=== PATIENT | female | born 1980 | race Caucasian/White ===

== ENCOUNTER → 2017-03-14 | Outpatient (REF) | payer OTHER ==
[~2017-03-14] MED LIST: IBUP600T26 PO; PERC5TAB6 PO; STUACAP PO
== END ==
LOC: M LAB REF 13:22
PROVIDERS: ATTEND Specialist
DX: Z12.4 Encounter for screening for malignant neoplasm of cervix (principal)

== ENCOUNTER → 2017-10-03 | Outpatient (CLI) | payer OTHER ==
[~2017-10-03] MED LIST changes: +IBUP-1022 PO; -IBUP600T26 PO; +PERC5TAB12 PO; -PERC5TAB6 PO
[2017-10-03 14:10] LABS: ESTRADIOL 237.5 PG/ML; PROGESTERONE 20.1 NG/ML
== END ==
LOC: M SMT 11:13
PROVIDERS: ATTEND Obstetrics & Gynecology Reproductive Endocrinology
DX: N97.9 Female infertility, unspecified (principal)

== ENCOUNTER → 2017-10-10 | Outpatient (CLI) | payer OTHER ==
[2017-10-10 12:01] LABS: PROGESTERONE 18.6 NG/ML
== END ==
LOC: M SMT 09:32
PROVIDERS: ATTEND Obstetrics & Gynecology Reproductive Endocrinology
DX: N97.9 Female infertility, unspecified (principal)

== ENCOUNTER → 2017-10-12 | Outpatient (CLI) | payer OTHER ==
[2017-10-12 13:46] LABS: ESTRADIOL 247.2 PG/ML; PROGESTERONE 22.7 NG/ML
== END ==
LOC: M SMT 10:22
PROVIDERS: ATTEND Obstetrics & Gynecology Reproductive Endocrinology
DX: Z32.01 Encounter for pregnancy test, result positive (principal)

== ENCOUNTER → 2017-10-16 | Outpatient (CLI) | payer OTHER ==
[2017-10-16 11:44] LABS: ESTRADIOL 113.2 PG/ML; PROGESTERONE 6.6 NG/ML
== END ==
LOC: M SMT 09:15
PROVIDERS: ATTEND Obstetrics & Gynecology Reproductive Endocrinology
DX: Z32.00 Encounter for pregnancy test, result unknown (principal)

== ENCOUNTER → 2018-01-22 | Outpatient (REF) | payer OTHER ==
[2018-01-22 20:11] LABS: FOLATE 21.8 NG/ML (>5.4)
== END ==
LOC: M LAB REF 17:25
DX: D64.9 Anemia, unspecified (principal)
CPT/HCPCS: 82746

== ENCOUNTER 2018-06-05 20:30 | Emergency (ER) | payer OTHER ==
[2018-06-05 22:40] LABS: BASO % 0.3 % (0.0-1.0); EOS # 0.1 10^3/uL (0.0-0.50); HEMATOCRIT 42.8 % (36.0-47.0); HEMOGLOBIN 14.3 g/dl (12.0-15.5); IMMATURE GRANULOCYTE % 0.2 % (0-3.0); LYMPH # 3.2 10^3/uL (1.5-4.5); MEAN CORPUSCULAR HEMOGLOBIN 29.7 pg (27.0-33.0); MEAN CORPUSCULAR HGB CONC 33.4 g/dl (32.0-36.5); MONO # 0.8 10^3/uL (0.0-0.8); MONO % 6.4 % (0.0-5.0); NEUTROPHILS # 7.7 10^3/uL (1.8-7.7); NEUTROPHILS % 65.1 % (36.0-66.0); PLATELET COUNT, AUTOMATED 190 10^3/uL (150-450); RED BLOOD COUNT 4.81 10^6/uL (4.00-5.40); RED CELL DISTRIBUTION WIDTH 13.6 % (11.5-14.5); WHITE BLOOD COUNT 11.8 10^3/uL (4.0-10.0)
[2018-06-05 23:04] LABS: ANION GAP 9 MEQ/L (8-16); BLOOD UREA NITROGEN 12 MG/DL (7-18); CALCIUM LEVEL 8.7 MG/DL (8.5-10.1); CARBON DIOXIDE LEVEL 24 MEQ/L (21-32); CHLORIDE LEVEL 109 MEQ/L (98-107); CK-MB VALUE MASS < 1.0 NG/ML (<3.6); CPK CREATINE PHOSPHOKINASE 37 U/L (26-192); CREATININE FOR GFR 0.69 MG/DL (0.55-1.30); GLOMERULAR FILTRATION RATE > 60.0 (>60); GLUCOSE, FASTING 88 MG/DL (70-100); MAGNESIUM LEVEL 2.1 MG/DL (1.8-2.4); POTASSIUM SERUM 3.9 MEQ/L (3.5-5.1); SODIUM LEVEL 142 MEQ/L (136-145); TROPONIN I < 0.02 NG/ML (< 0.10)
== END 2018-06-06 01:26 | disposition home or self-care (01) ==
LOC: M ED 06-06 01:26
DX: O99.89 Other specified diseases and conditions complicating pregnancy, childbirth and the puerperium (principal); R07.89 Other chest pain; R00.2 Palpitations; Z3A.08 8 weeks gestation of pregnancy; Z79.899 Other long term (current) drug therapy
CPT/HCPCS: 93005

== ENCOUNTER → 2018-07-31 | Outpatient (CLI) | payer OTHER ==
[2018-07-31 13:51] LABS: BASO % 0.2 % (0.0-1.0); EOS # 0.1 10^3/uL (0.0-0.50); EOS % 1.7 % (0.0-3.0); HEMATOCRIT 39.4 % (36.0-47.0); HEMOGLOBIN 13.3 g/dl (12.0-15.5); IMMATURE GRANULOCYTE % 0.2 % (0-3.0); LYMPH # 1.5 10^3/uL (1.5-4.5); LYMPH % 18.9 % (24.0-44.0); MEAN CORPUSCULAR HEMOGLOBIN 29.7 pg (27.0-33.0); MEAN CORPUSCULAR HGB CONC 33.8 g/dl (32.0-36.5); MEAN CORPUSCULAR VOLUME 87.9 fl (80.0-96.0); MONO # 0.4 10^3/uL (0.0-0.8); MONO % 4.9 % (0.0-5.0); NEUTROPHILS % 74.1 % (36.0-66.0); PLATELET COUNT, AUTOMATED 151 10^3/uL (150-450); RED BLOOD COUNT 4.48 10^6/uL (4.00-5.40); RED CELL DISTRIBUTION WIDTH 13.1 % (11.5-14.5); WHITE BLOOD COUNT 8.1 10^3/uL (4.0-10.0)
[2018-07-31 16:09] LABS: CHLAMYDIA DNA AMPLIFICATION NEGATIVE (NEGATIVE); GC DNA AMPLIFICATION NEGATIVE (NEGATIVE)
[2018-08-01 13:16] LABS: HBsAg Prenatal NEGATIVE (NEGATIVE); HIV 1&2 SCREEN CENTAUR NEGATIVE (NEGATIVE); RUBELLA IgG QUALITATIVE IMMUNE (IMMUNE)
[2018-08-01 13:16] LABS: HEPATITIS C VIRUS ABY INDEX 0.1 INDEX (<0.8)
== END ==
LOC: M SMT 09:17
DX: Z3A.12 12 weeks gestation of pregnancy (principal); Z34.82 Encounter for supervision of other normal pregnancy, second trimester

== ENCOUNTER → 2018-07-31 | Outpatient (CLI) | payer OTHER ==
[2018-07-31 14:32] LABS: NT-PRO BNP 12 PG/ML (<125)
== END ==
LOC: M SMT 09:15
DX: R06.02 Shortness of breath (principal)

== ENCOUNTER → 2018-08-06 | Outpatient (REF) | payer OTHER | LOC: M LAB REF 13:21 | DX: O09.812 Supervision of pregnancy resulting from assisted reproductive technology, second trimester (principal) ==

== ENCOUNTER → 2018-08-14 | Outpatient (CLI) | payer OTHER | LOC: M RAD 08:39 | DX: O09.812 Supervision of pregnancy resulting from assisted reproductive technology, second trimester (principal); Z3A.18 18 weeks gestation of pregnancy | CPT/HCPCS: 76811 ==

== ENCOUNTER → 2018-10-08 | Outpatient (CLI) | payer OTHER ==
[2018-10-08 18:35] LABS: BASO % 0.2 % (0.0-1.0); EOS # 0.1 10^3/uL (0.0-0.50); EOS % 1.3 % (0.0-3.0); HEMATOCRIT 37.8 % (36.0-47.0); HEMOGLOBIN 12.4 g/dl (12.0-15.5); IMMATURE GRANULOCYTE % 0.2 % (0-3.0); LYMPH # 1.5 10^3/uL (1.5-4.5); LYMPH % 17.2 % (24.0-44.0); MEAN CORPUSCULAR HEMOGLOBIN 28.7 pg (27.0-33.0); MEAN CORPUSCULAR HGB CONC 32.8 g/dl (32.0-36.5); MEAN CORPUSCULAR VOLUME 87.5 fl (80.0-96.0); MONO # 0.5 10^3/uL (0.0-0.8); MONO % 5.3 % (0.0-5.0); NEUTROPHILS # 6.5 10^3/uL (1.8-7.7); NEUTROPHILS % 75.8 % (36.0-66.0); PLATELET COUNT, AUTOMATED 146 10^3/uL (150-450); RED BLOOD COUNT 4.32 10^6/uL (4.00-5.40); RED CELL DISTRIBUTION WIDTH 13.5 % (11.5-14.5); WHITE BLOOD COUNT 8.6 10^3/uL (4.0-10.0)
[2018-10-08 18:52] LABS: GLUCOSE CHALLENGE TEST 1 HOUR 176 MG/DL (LESS THAN 140)
== END ==
LOC: M SMT 14:38
DX: O09.522 Supervision of elderly multigravida, second trimester (principal)
CPT/HCPCS: 82950

== ENCOUNTER → 2018-12-19 | Outpatient (REF) | payer OTHER ==
[~2018-12-19] MED LIST changes: +ESTR2TAB2 PO; +PRED5TA PO; +PRENTAB55 PO; +PROG200C PO; +PROG50IN5 IM
== END ==
LOC: M LAB REF 13:20
PROVIDERS: ATTEND Specialist
DX: O09.523 Supervision of elderly multigravida, third trimester (principal); Z3A.00 Weeks of gestation of pregnancy not specified

== ENCOUNTER 2019-01-07 05:28 | Inpatient (IN) | payer OTHER ==
[~2019-01-07] VITALS: Ht 167.6 cm; Wt 95.9 kg
[2019-01-07] VITALS (9 sets, daily range): BP systolic 99–135; BP diastolic 55–90
[~2019-01-07 05:28] MED LIST changes: +METF500T13 PO
[2019-01-07] MEDS ORDERED: BICITRA 30ML SOLN UDC PO ONE (05:45)
[2019-01-07] MEDS ORDERED: LR 800 ML IV ONE (05:45)
[2019-01-07 06:30] LABS: HEMATOCRIT 41.5 % (36.0-47.0); HEMOGLOBIN 13.3 g/dl (12.0-15.5); MEAN CORPUSCULAR HEMOGLOBIN 27.3 pg (27.0-33.0); MEAN CORPUSCULAR VOLUME 85.2 fl (80.0-96.0); PLATELET COUNT, AUTOMATED 152 10^3/uL (150-450); RED BLOOD COUNT 4.87 10^6/uL (4.00-5.40); WHITE BLOOD COUNT 9.7 10^3/uL (4.0-10.0)
[2019-01-07] MEDS ORDERED: LR 1,000 ML IV SCH ×2 (06:45→09:12)
[2019-01-07] MEDS ORDERED: MORPHINE PRES-FREE INJ 10 MG/10 ML VIAL (J2274) As Ordered ONE (07:13)
[2019-01-07] MEDS ORDERED: BUPIVACAINE/DEXTROSE 0.75% 2 ML AMP As Ordered ONE (07:14)
[2019-01-07] MEDS ORDERED: OXYTOCIN INJ 10 UNITS/ML VIAL (J2590) As Ordered ONE (07:54)
[2019-01-07] MEDS ORDERED: diphenhydrAMINE INJ 50MG/ML VIAL (J1200) IV PRN (08:02)
[2019-01-07] MEDS ORDERED: METOCLOPRAMIDE INJ 10MG/2ML VIAL (J2765) IV PRN (08:02)
[2019-01-07] MEDS ORDERED: ONDANSETRON 4MG/2ML VIAL (J2405) IV PRN ×3 (08:02→09:30)
[2019-01-07] MEDS ORDERED: NALBUPHINE HCL 10 MG/ML AMP (J2300) IV PRN ×2 (08:02→09:30)
[2019-01-07] MEDS ORDERED: NALOXONE INJ 0.4 MG/1 ML VIAL (J2310) IV PRN ×2 (08:02)
[2019-01-07] MEDS ORDERED: dexameTHASONE 4 MG/ML 1ML VIAL (J1100) As Ordered ONE (08:33)
[2019-01-07] MEDS ORDERED: ONDANSETRON 4MG/2ML VIAL (J2405) As Ordered ONE (08:33)
[2019-01-07] MEDS ORDERED: OXYTOCIN DRIP 30 UNITS in APPROPRIATE DILUENT 1 EA IV SCH (09:12)
[2019-01-07] MEDS ORDERED: OXYC1TAB23 PO (09:14)
[2019-01-07] MEDS ORDERED: IBUP1TAB7 PO (09:15)
[2019-01-07] MEDS ORDERED: RHOGAM 300 MCG (1500 IU) INJ (J2790) IM SCH (09:15)
[2019-01-07] MEDS ORDERED: MEASLES,MUMPS,RUBELLA VACCINE INJ (MMR-II) (90707) SC SCH (09:15)
[2019-01-07] MEDS ORDERED: PERCOCET 5MG/325MG TAB PO PRN ×2 (09:15)
[2019-01-07] MEDS ORDERED: NALBUPHINE HCL 10 MG/ML AMP (J2300) As Ordered ONE (09:27)
[2019-01-07] MEDS ORDERED: KETOROLAC 30 MG/ML VIAL (J1885) IV PRN (09:30)
[2019-01-07] MEDS ORDERED: fentaNYL 100 MCG/2 ML INJECTION (J3010) IV PRN (09:30)
[2019-01-07] MEDS ORDERED: OXYTOCIN 30 UNITS IN 0.9% NaCl 500ML IV BAG (J2590) As Ordered ONE (10:18)
[2019-01-07] MEDS: KETOROLAC 30 MG/ML VIAL (J1885) IV SCH ×3 (11:01→23:28)
[2019-01-08 02:00] VITALS: BP 109/59
[2019-01-08] MEDS: KETOROLAC 30 MG/ML VIAL (J1885) IV SCH (05:42)
[2019-01-08 05:43] VITALS: BP 111/59
[2019-01-08 07:23] LABS: HEMATOCRIT 35.7 % (36.0-47.0); HEMOGLOBIN 11.5 g/dl (12.0-15.5); MEAN CORPUSCULAR HEMOGLOBIN 27.4 pg (27.0-33.0); MEAN CORPUSCULAR HGB CONC 32.2 g/dl (32.0-36.5); PLATELET COUNT, AUTOMATED 127 10^3/uL (150-450); WHITE BLOOD COUNT 9.5 10^3/uL (4.0-10.0)
[2019-01-08] MEDS: PRENATAL VITAMINS CHEWABLE TABLET PO SCH (08:57)
[2019-01-08] MEDS ORDERED: ADACEL/BOOSTRIX VACCINE (DIPHTH/PERTUSS/ACELL/TETANUS)0.5ML SYR (90715) IM ONE (09:00)
--- NOTE | 2019-01-08 09:26 | RO ---
DATE OF OPERATION: 01/07/2019 PREOPERATIVE DIAGNOSIS: 39 weeks, prior section times one. POSTOPERATIVE DIAGNOSIS: 39 weeks, prior section times one. PROCEDURE: Repeat low transverse section. SURGEON: Heath Ceja MD GEOTHERMAL ELECTRICAL ENGINEER: Swati Phillips CNM ANESTHESIA: Spinal. ESTIMATED BLOOD LOSS: 600 mL. URINE OUTPUT: 100 mL. INTRAVENOUS (IV) FLUIDS: 1200 mL lactated Ringer (LR). FINDINGS: 3360 gram (7 pound 7 ounce) male , score 7 and 9, vertex position. Uterine septum with baby positioned in the left side surgically absent fallopian tube with moderate amount of adhesions with bladder to the anterior uterus. OPERATIVE SUMMARY: Patient taken to the operating room where spinal anesthesia was induced. She was prepped and draped in sterile fashion in the supine position. Orosco catheter was placed. A Pfannenstiel skin incision was made with the scalpel and carried through to the fascia. The fascia was nicked and extended. The fascia was dissected off the rectus muscles. Peritoneal cavity was entered. A bladder flap was created. A curvilinear incision was made in the lower uterine segment until bulging membranes were noted. This was extended manually. Membranes were ruptured of clear fluid. The infant was delivered from the vertex position with the use of the vacuum extractor. Nuchal cord times three was noted and reduced manually. The shoulders delivered with ease. The cord was doubly clamped and cut. The was handed off to the awaiting nurses. The placenta was expressed. The uterus was exteriorized and cleared of clots and debris. The uterine incision was closed with #0 Vicryl in a running locked fashion. A second imbricating layer of #0 Vicryl was placed. The uterus was placed back in the abdominal cavity. The peritoneum was closed with #2-0 Vicryl in a running fashion. The fascia was closed with #0 Vicryl in a running fashion. The deep layer was irrigated and closed with #2-0 chromic. The skin was closed with #4-0 Monocryl subcuticular sutures. Sponge, instrument and needle counts were correct. Swati Phillips CNM assisted in all aspects of procedure from beginning to end. She helped create all layers of the abdomen as well as hysterotomy. She assisted with delivery of the fetus and subsequent closure of all layers.
[2019-01-08 10:00] VITALS: BP 112/61
[2019-01-08] MEDS: IBUPROFEN 800 MG TAB PO SCH ×2 (13:05→20:33)
[2019-01-08 14:00] VITALS: BP 111/62
[2019-01-08 18:00] VITALS: BP 118/63
[2019-01-08 22:06] VITALS: BP 126/61
[2019-01-09 02:30] VITALS: BP 104/67
[2019-01-09] MEDS: IBUPROFEN 800 MG TAB PO SCH (05:04)
[2019-01-09 05:49] VITALS: BP 107/63
[2019-01-09] MEDS ORDERED: OXYC1TAB23 PO (07:40)
[2019-01-09] MEDS: PRENATAL VITAMINS CHEWABLE TABLET PO SCH (07:46)
--- NOTE | 2019-01-09 08:33 | DSES ---
DATE OF ADMISSION: 01/07/2019 DATE OF DISCHARGE: 01/09/2019 DISCHARGE DIAGNOSIS: History of prior section for elective repeat. DISCHARGE CONDITION: Stable. PROCEDURES PERFORMED WHILE IN HOSPITAL: 1. Spinal anesthesia. 2. section. HISTORY AND HOSPITAL COURSE: Ms. Dos Santos presented at 39 weeks for a scheduled section. She had a history of one prior section. She underwent an uncomplicated section productive of live born male infant. score 7 and 9. Weight was 7 pounds 7 ounces. Estimated blood loss was 600 ounces. She did well postoperatively. By postoperative day #2 had met all discharge criteria. She was discharged home in stable condition. PHYSICAL EXAMINATION: On day of discharge, her vital signs are stable. She is afebrile. General appearance is well appearing, no acute distress. Her abdomen is soft, appropriately tender. Fundus was below umbilicus. Her incision was dressed. Extremities negative for calf tenderness. DISCHARGE MEDICATIONS: - ibuprofen - Percocet DISCHARGE INSTRUCTIONS: 1. She was instructed to followup in 2 weeks for incision check appointment. 2. Remain on pelvic rest. 3. Report severe pain, heavy vaginal bleeding, incisional issues or fever.
== END 2019-01-09 11:00 | disposition home or self-care (01) | DRG 540 ==
LOC: M LDI 05:28 → M OBS 14:21
PROVIDERS: ADMIT Specialist; ATTEND Specialist
PROC: 10D00Z1 Extraction of Products of Conception, Low, Open Approach (ICD-10-PCS; principal; 2019-01-07 07:30)
DX: O34.211 Maternal care for low transverse scar from previous cesarean delivery (principal); Z3A.39 39 weeks gestation of pregnancy; Z37.0 Single live birth

== ENCOUNTER → 2019-10-09 | Outpatient (REF) | payer OTHER ==
[~2019-10-09] MED LIST changes: +IBUP1TAB7 PO; +OXYC1TAB23 PO; +PROG1CAP9 PO; -PROG200C PO
== END ==
LOC: M SFHCWAGY 13:26
PROVIDERS: ATTEND Specialist
DX: Z01.419 Encounter for gynecological examination (general) (routine) without abnormal findings (principal)

== ENCOUNTER 2020-01-30 05:58 | Day surgery (SDC) | payer OTHER ==
[~2020-01-30] VITALS: Ht 170.2 cm; Wt 93.0 kg
[2020-01-30] MEDS ORDERED: LR 1,000 ML IV ONE (06:00)
[2020-01-30 06:37] LABS: HEMATOCRIT 42.2 % (36.0-47.0); HEMOGLOBIN 13.4 g/dl (12.0-15.5); MEAN CORPUSCULAR HEMOGLOBIN 27.4 pg (27.0-33.0); MEAN CORPUSCULAR HGB CONC 31.8 g/dl (32.0-36.5); MEAN CORPUSCULAR VOLUME 86.3 fl (80.0-96.0); PLATELET COUNT, AUTOMATED 198 10^3/uL (150-450); RED BLOOD COUNT 4.89 10^6/uL (4.00-5.40); WHITE BLOOD COUNT 7.6 10^3/uL (4.0-10.0)
[2020-01-30] MEDS ORDERED: PROBCAP14 PO (06:48)
[2020-01-30] MEDS ORDERED: propofoL 200 MG/20 ML VIAL As Ordered ONE (07:19)
[2020-01-30] MEDS ORDERED: fentaNYL 100 MCG/2 ML INJECTION (J3010) As Ordered ONE (07:19)
[2020-01-30] MEDS ORDERED: MIDAZOLAM INJ 2 MG/2 ML VIAL (J2250) As Ordered ONE (07:19)
[2020-01-30] MEDS ORDERED: ONDANSETRON 4MG/2ML VIAL (J2405) As Ordered ONE (07:20)
[2020-01-30] MEDS ORDERED: dexameTHASONE 4 MG/ML 1ML VIAL (J1100 PER 1MG) As Ordered ONE (07:20)
[2020-01-30] MEDS ORDERED: LIDOCAINE 2% INJ 100 MG/5 ML SDV (FOR ANES.) As Ordered ONE (07:20)
[2020-01-30] MEDS ORDERED: BUPIVACAINE HCL 0.25% 30ML VIAL As Ordered ONE (07:48)
[2020-01-30] MEDS ORDERED: KETOROLAC 60 MG/2 ML VIAL (J1885) As Ordered ONE (07:51)
[2020-01-30] MEDS ORDERED: METOCLOPRAMIDE INJ 10MG/2ML VIAL (J2765) As Ordered ONE (07:51)
[2020-01-30] MEDS ORDERED: ACETAMINOPHEN 1000MG 100ML IV BTL (OFIRMEV) (J0131 PER 10MG) As Ordered ONE (07:52)
[2020-01-30] MEDS ORDERED: OXYC1TAB23 PO (09:18)
[2020-01-30] MEDS ORDERED: IBUP-1022 PO (09:20)
[2020-01-30] MEDS ORDERED: fentaNYL 100 MCG/2 ML INJECTION (J3010) IV PRN (09:30)
[2020-01-30] MEDS ORDERED: LR 1,000 ML IV SCH (09:30)
[2020-01-30] MEDS ORDERED: ONDANSETRON 4MG/2ML VIAL (J2405) IV PRN (09:30)
[2020-01-30] MEDS ORDERED: PERCOCET 5MG/325MG TAB PO PRN (09:30)
--- NOTE | 2020-01-30 09:46 | RO ---
DATE OF PROCEDURE: 01/30/2020 PREPROCEDURE DIAGNOSIS: Large right vulvar lipoma. POSTPROCEDURE DIAGNOSIS: Large right vulvar lipoma. PROCEDURE: Excision of right vulvar lipoma. SURGEON: Dr. Heath Ceja PATIENT CARE REPRESENTATIVE: ANESTHESIA: LMA. ESTIMATED BLOOD LOSS: 200 mL. URINE OUTPUT: 100 mL. FINDINGS: 11-12 cm multilobular lipoma of the right labia majora. DESCRIPTION OF PROCEDURE: The patient was taken to the operating room where LMA anesthesia was induced. She was prepped and draped in sterile fashion in the dorsal lithotomy position. The bladder was emptied with the catheter. The marking pen was used to john paul the area of the incision. The area was injected with 0.25% Marcaine solution. A vertical midline incision was created over the vulvar mass. Allis clamps were used to grasp the edges of the skin. The mass was dissected sharply off the vulva. Blunt dissection was also utilized. Bleeding vessels were identified and coagulated. Occasionally, bleeding vessels were sutured. The mass was mobilized as the borders were identified. The specimen was removed intact in one piece. The area was probed for evidence of hernia or other problems and none were found. The base of the excision site was closed with running sutures of #3-[address] the space was closed. Excess skin was excised using Calabrese scissors. The skin was closed with #3-0 Vicryl in a running fashion. Separate retention sutures were placed in an effort to prevent wound separation. Sponge, instrument and needle counts were correct. The patient was extubated and went to recovery room in stable condition.
[2020-01-30 11:41] VITALS: BP 110/74
== END 2020-01-30 11:53 | disposition home or self-care (01) ==
LOC: M SDC 05:58
PROVIDERS: ATTEND Specialist
DX: D17.72 Benign lipomatous neoplasm of other genitourinary organ (principal)
CPT/HCPCS: 11426; 36415; 85027; 88304; J0131; J1100; J1885; J2250; J2405; J2765; J3010

== ENCOUNTER → 2020-06-18 | Outpatient (CLI) | payer OTHER ==
[~2020-06-18] MED LIST changes: +PROBCAP14 PO
--- NOTE | 2020-06-18 15:37 | REPVR ---
PROCEDURE INFORMATION: Exam: CT Maxillofacial Without Contrast, Sinus Exam date and time: 06/18/2020 3:20 PM Age: 39 years old Clinical indication: Sinusitis; Chronic; Additional info: J32.0 chronic maxillary sinusitis TECHNIQUE: Imaging protocol: CT Maxillofacial without contrast. Focus on the sinuses. Radiation optimization: All CT scans at this facility use at least one of these dose optimization techniques: automated exposure control; mA and/or kV adjustment per patient size (includes targeted exams where dose is matched to clinical indication); or iterative reconstruction. COMPARISON: No relevant prior studies available. FINDINGS: Frontal sinuses: Normal. No air-fluid levels. Ethmoid air cells: Normal. No air-fluid levels. Sphenoid sinuses: Normal. No air-fluid levels. Maxillary sinuses: Normal. No air-fluid levels. Ostiomeatal units are patent. Orbits: Examination reveals bilateral globes to be normal in size and morphology. The optic nerves are normal in thickness and symmetric bilaterally. The extraocular muscles are normal in thickness and signal intensity. The retroconal fat has a normal appearance. The lacrimal glands appear normal bilaterally. Mastoid air cells: The visualized mastoid air cells are clear. Nasal cavity/Septum: Unremarkable. Brain: The visualized brain parenchyma is unremarkable. Soft tissues: Unremarkable. Bones/joints: The bony orbital lees are intact. No fractures are identified. The visualized osseous structures are unremarkable. No acute fracture or dislocation is seen. IMPRESSION: 1. The visualized paranasal sinuses are clear. There are no air fluid levels to suggest acute sinusitis. 2. The visualized mastoid air cells are clear. Electronically signed by: Mynor Javier On 06/18/2020 15:38:03 PM
== END ==
LOC: M RAD 14:58
PROVIDERS: ATTEND Otolaryngology
DX: J32.0 Chronic maxillary sinusitis (principal)

== ENCOUNTER → 2020-06-26 | Outpatient (REF) | payer OTHER ==
[2020-06-26 17:39] LABS: APPEARANCE, URINE CLEAR (CLEAR); BACTERIA, URINE AUTO NEGATIVE (NEGATIVE); BILIRUBIN, URINE AUTO NEGATIVE (NEGATIVE); BLOOD, URINE BLOOD NEGATIVE (NEGATIVE); COLOR, URINE STRAW (YELLOW); GLUCOSE, URINE (UA) AUTO NEGATIVE (NEGATIVE); KETONE, URINE AUTO NEGATIVE (NEGATIVE); LEUKOCYTE ESTERASE, URINE AUTO NEGATIVE (NEGATIVE); NITRITE, URINE AUTO NEGATIVE (NEGATIVE); PROTEIN, URINE AUTO NEGATIVE (NEGATIVE); RBC, URINE AUTO 0 /HPF (0-3); SPECIFIC GRAVITY URINE AUTO 1.013 (1.002-1.035); SQUAMOUS EPITHELIAL CELL UR AU 0 /HPF (0-6); UROBILINOGEN, URINE AUTO 0.2 mg/dL (0.0-2.0); WBC, URINE AUTO 0 /HPF (0-3)
[2020-06-26 18:19] LABS: URINE PREG TEST NEGATIVE (NEGATIVE)
== END ==
LOC: M LAB REF 16:59
PROVIDERS: ATTEND Physician Assistant
DX: N39.0 Urinary tract infection, site not specified (principal)

== ENCOUNTER → 2020-07-04 | Outpatient (REF) | payer OTHER ==
[2020-07-04 13:01] LABS: APPEARANCE, URINE HAZY (CLEAR); BACTERIA, URINE AUTO NEGATIVE (NEGATIVE); BILIRUBIN, URINE AUTO NEGATIVE (NEGATIVE); BLOOD, URINE BLOOD 1+ (NEGATIVE); COLOR, URINE YELLOW (YELLOW); GLUCOSE, URINE (UA) AUTO NEGATIVE (NEGATIVE); KETONE, URINE AUTO NEGATIVE (NEGATIVE); LEUKOCYTE ESTERASE, URINE AUTO NEGATIVE (NEGATIVE); MUCUS, URINE SMALL (NEGATIVE); NITRITE, URINE AUTO NEGATIVE (NEGATIVE); PROTEIN, URINE AUTO NEGATIVE (NEGATIVE); RBC, URINE AUTO 1 /HPF (0-3); SQUAMOUS EPITHELIAL CELL UR AU 7 /HPF (0-6); UROBILINOGEN, URINE AUTO 0.2 mg/dL (0.0-2.0); WBC, URINE AUTO 1 /HPF (0-3)
== END ==
LOC: M LAB 12:27
PROVIDERS: ATTEND Physician Assistant Medical
DX: N39.0 Urinary tract infection, site not specified (principal)

== ENCOUNTER → 2020-11-24 | Outpatient (CLI) | payer OTHER ==
[2020-11-24 15:56] LABS: ALBUMIN 4.2 GM/DL (3.2-5.2); ALT/SGPT 32 U/L (12-78); BILIRUBIN,TOTAL 0.3 MG/DL (0.2-1.0); BLOOD UREA NITROGEN 12 MG/DL (7-18); CALCIUM LEVEL 9.1 MG/DL (8.5-10.1); CARBON DIOXIDE LEVEL 30 MEQ/L (21-32); CHLORIDE LEVEL 106 MEQ/L (98-107); CREATININE FOR GFR 0.76 MG/DL (0.55-1.30); GLOMERULAR FILTRATION RATE > 60.0 (>60); GLUCOSE, FASTING 103 MG/DL (70-100); HCG, SERUM QUANTITATIVE < 1.0 MIU/ML; SODIUM LEVEL 141 MEQ/L (136-145); TOTAL PROTEIN 7.4 GM/DL (6.4-8.2)
== END ==
LOC: M PLALAB 13:30
PROVIDERS: ATTEND Obstetrics & Gynecology Reproductive Endocrinology
DX: E28.9 Ovarian dysfunction, unspecified (principal)

== ENCOUNTER → 2021-01-27 | Outpatient (CLI) | payer OTHER ==
[2021-01-27 15:53] LABS: ESTRADIOL 117.6 PG/ML; PROGESTERONE 32.28 NG/ML
== END ==
LOC: M PLALAB 10:29
PROVIDERS: ATTEND Obstetrics & Gynecology Reproductive Endocrinology
DX: E28.9 Ovarian dysfunction, unspecified (principal)

== ENCOUNTER → 2021-02-02 | Outpatient (CLI) | payer OTHER ==
[2021-02-02 16:30] LABS: PROGESTERONE 7.78 NG/ML
== END ==
LOC: M PLALAB 13:31
PROVIDERS: ATTEND Obstetrics & Gynecology Reproductive Endocrinology
DX: Z32.00 Encounter for pregnancy test, result unknown (principal)

== ENCOUNTER → 2021-05-04 | Outpatient (CLI) | payer OTHER ==
[2021-05-04 15:46] LABS: HEMATOCRIT 38.2 % (36.0-47.0); HEMOGLOBIN 12.3 g/dl (12.0-15.5); MEAN CORPUSCULAR HEMOGLOBIN 28.9 pg (27.0-33.0); MEAN CORPUSCULAR HGB CONC 32.2 g/dl (32.0-36.5); MEAN CORPUSCULAR VOLUME 89.9 fl (80.0-96.0); PLATELET COUNT, AUTOMATED 142 10^3/uL (150-450); RED BLOOD COUNT 4.25 10^6/uL (4.00-5.40); WHITE BLOOD COUNT 8.4 10^3/uL (4.0-10.0)
[2021-05-04 17:07] LABS: GC DNA AMPLIFICATION NEGATIVE (NEGATIVE)
[2021-05-04 17:36] LABS: HIV 1&2 SCREEN CENTAUR NEGATIVE (NEGATIVE)
[2021-05-04 18:03] LABS: HEMOGLOBIN A1c 5.4 %
== END ==
LOC: M PLALAB 13:24
PROVIDERS: ATTEND Specialist
DX: Z34.81 Encounter for supervision of other normal pregnancy, first trimester (principal)

== ENCOUNTER → 2021-05-10 | Outpatient (REF) | payer OTHER | LOC: M SFHCWAGY 16:55 | PROVIDERS: ATTEND Obstetrics & Gynecology | DX: O09.812 Supervision of pregnancy resulting from assisted reproductive technology, second trimester (principal) ==

== ENCOUNTER → 2021-07-29 | Outpatient (CLI) | payer OTHER | LOC: M LAB 09:33 | PROVIDERS: ATTEND Advanced Practice Midwife | DX: O09.292 Supervision of pregnancy with other poor reproductive or obstetric history, second trimester (principal) ==

== ENCOUNTER → 2021-09-02 | Outpatient (CLI) | payer OTHER ==
[~2021-09-02] MED LIST changes: -ESTR2TAB2 PO; +ESTR2TAB3 PO
--- NOTE | 2021-09-02 13:29 | REP ---
INDICATION: GROWTH DIABETES. COMPARISON: Report of ultrasound at [facility], 05/24/2021 she is 34 weeks 3 days by that ultrasound.. TECHNIQUE: Transabdominal imaging provided. FINDINGS: Scanning demonstrates a living single intrauterine gestation in a cephalic lie. motion is observed and heart rate is recorded at 146 beats per minute. An anterior, grade 1 placenta is seen without evidence of previa. Amniotic fluid is subjectively normal with JU 16.2 (8.0-24.9). Closed cervical length is measured at 4.1 cm transabdominally. No extrauterine abnormality is observed. There has been appropriate interval growth. Umbilical artery Doppler: SD ratio 2.33 (1.7-3.63), RI 0.57 (0.46-0.72). No anatomy screen was requested or performed. Biometry chart: BPD 8.5 cm; 34 weeks 1 days Head circumference 30.9 cm; 34 weeks 3 days Abdominal circumference 30.3 cm; 34 weeks 2 days Femur length 6.7 cm; 34 weeks 4 days Humeral length 6.0 cm; 34 weeks 4 days HC/AC ratio normal 1.02 Cephalic index normal 0.77 Estimated weight 2411 grams, 5 pounds 5 ounces, 39 percentile for 34 weeks 4 days. IMPRESSION: Viable single intrauterine gestation at 34 weeks 3 days by today's composite sonographic criteria. Expected gestational age estimate based on prior sonography is 34 weeks is 3 days. DAV by prior sonography 10/11/2021. Normal interval growth. <Electronically signed by Edson Kunz > 09/02/21 [id number]
== END ==
LOC: M WHC 10:05
PROVIDERS: ATTEND Advanced Practice Midwife
DX: O24.419 Gestational diabetes mellitus in pregnancy, unspecified control (principal)

== ENCOUNTER → 2021-09-16 | Outpatient (REF) | payer OTHER | LOC: M SFHCWAGY 12:53 | PROVIDERS: ATTEND Obstetrics & Gynecology | DX: O34.211 Maternal care for low transverse scar from previous cesarean delivery (principal) ==

== ENCOUNTER → 2021-09-30 | Outpatient (CLI) | payer OTHER ==
[~2021-09-30] MED LIST changes: +IBUP80TA PO
== END ==
LOC: M LABSMTC 09:13
PROVIDERS: ATTEND Anesthesiology
DX: Z01.818 Encounter for other preprocedural examination (principal); Z11.52 Encounter for screening for COVID-19

== ENCOUNTER 2021-10-04 07:30 | Inpatient (IN) | payer OTHER ==
[~2021-10-04] VITALS: Ht 170.2 cm; Wt 99.8 kg
[~2021-10-04 07:30] MED LIST changes: -IBUP80TA PO
[2021-10-05] MEDS ORDERED: HOME MED LIST COMPLETE! XX SCH (05:55)
[2021-10-05] MEDS ORDERED: ceFAZolin SOD 2 GM in IV 1 EA IV ONE (06:00)
[2021-10-05] MEDS ORDERED: BICITRA 30ML SOLN UDC PO ONE (06:00)
[2021-10-05 06:23] LABS: HEMATOCRIT 35.6 % (36.0-47.0); HEMOGLOBIN 10.9 g/dl (12.0-15.5); MEAN CORPUSCULAR HEMOGLOBIN 23.6 pg (27.0-33.0); MEAN CORPUSCULAR HGB CONC 30.6 g/dl (32.0-36.5); MEAN CORPUSCULAR VOLUME 77.2 fl (80.0-96.0); PLATELET COUNT, AUTOMATED 174 10^3/uL (150-450); RED BLOOD COUNT 4.61 10^6/uL (4.00-5.40); WHITE BLOOD COUNT 8.7 10^3/uL (4.0-10.0)
[2021-10-05] MEDS ORDERED: dexameTHASONE 4 MG/ML 1ML VIAL (J1100 PER 1MG) As Ordered ONE (07:39)
[2021-10-05] MEDS ORDERED: KETOROLAC 60MG 2ML VIAL As Ordered ONE (07:39)
[2021-10-05] MEDS ORDERED: MORPHINE PRES-FREE INJ 10 MG/10 ML VIAL (J2274) As Ordered ONE (07:39)
[2021-10-05] MEDS ORDERED: ONDANSETRON 4MG/2ML VIAL As Ordered ONE (07:39)
[2021-10-05] MEDS ORDERED: OXYTOCIN 30 UNITS IN 0.9% NaCl 500ML IV BAG (J2590) As Ordered ONE ×2 (07:40→09:36)
[2021-10-05] MEDS ORDERED: ACETAMINOPHEN 1000MG 100ML IV BTL (OFIRMEV) (J0131 PER 10MG) As Ordered ONE (07:52)
[2021-10-05] MEDS ORDERED: LR 500 ML IV SCH (08:00)
[2021-10-05] MEDS ORDERED: ONDANSETRON 4MG/2ML VIAL IV PRN ×3 (08:23→09:55)
[2021-10-05] MEDS ORDERED: diphenhydrAMINE 50MG/ML VIAL (J1200) IV PRN (08:23)
[2021-10-05] MEDS ORDERED: METOCLOPRAMIDE INJ 10MG/2ML VIAL (J2765 PER 1) IV PRN (08:23)
[2021-10-05] MEDS ORDERED: NALOXONE INJ 0.4MG/1ML VIAL (J2310 PER 1MG) IV PRN ×2 (08:23)
[2021-10-05] MEDS ORDERED: NALBUPHINE HCL 10 MG/ML AMP (J2300) IV PRN (08:23)
[2021-10-05] MEDS ORDERED: ePHEDrine SULFATE 25 MG/5 ML(5MG/ML) SYRINGE As Ordered ONE (08:41)
[2021-10-05] MEDS ORDERED: PHENYLephrine 500MCG 5ML (100MCG/ML) SYRINGE As Ordered ONE (08:41)
[2021-10-05] MEDS ORDERED: LR 1,000 ML IV SCH ×3 (09:00→10:00)
[2021-10-05] MEDS ORDERED: RHOGAM 300 MCG (1500 IU) INJ (J2790) IM SCH (09:30)
[2021-10-05] MEDS ORDERED: OXYTOCIN DRIP 30 UNITS in IV 1 EA IV SCH (09:30)
[2021-10-05] MEDS ORDERED: MEASLES,MUMPS,RUBELLA VACCINE INJ (MMR-II) (90707) SC SCH (09:30)
[2021-10-05] MEDS ORDERED: PERCOCET 5MG/325MG TAB PO PRN (09:55)
[2021-10-05] MEDS ORDERED: fentaNYL 100 MCG/2 ML INJECTION IV PRN (09:55)
[2021-10-05] MEDS ORDERED: TRANEXAMIC ACID INJection 1,000 MG in NS 100 ML IV PRN (10:15)
[2021-10-05] MEDS ORDERED: TRANEXAMIC ACID 100 MG/ML 10ML VIAL As Ordered ONE (10:18)
[2021-10-05] MEDS ORDERED: diphenhydrAMINE 50MG/ML VIAL (J1200) As Ordered ONE (10:52)
[2021-10-05 12:10] VITALS: BP 120/71
[2021-10-05 12:40] VITALS: BP 131/73
[2021-10-05 13:40] VITALS: BP 91/55
[2021-10-05 14:40] VITALS: BP 111/69
[2021-10-05] MEDS: KETOROLAC 30 MG/ML 1ML VIAL IV SCH ×2 (15:34→21:30)
[2021-10-05 18:00] VITALS: BP 102/61
[2021-10-05 22:00] VITALS: BP 113/64
[2021-10-06] VITALS (16 sets, daily range): BP systolic 108–142; BP diastolic 54–66
[2021-10-06] MEDS: KETOROLAC 30 MG/ML 1ML VIAL IV SCH (02:46)
[2021-10-06] MEDS: PERCOCET 5MG/325MG TAB PO PRN ×3 (07:56→21:21)
[2021-10-06] MEDS: SIMETHICONE 80MG CHEW TAB PO PRN ×2 (07:56→16:09)
[2021-10-06] MEDS: PRENATAL VITAMINS CHEWABLE TABLET PO SCH (07:56)
[2021-10-06 08:48] LABS: MEAN CORPUSCULAR HEMOGLOBIN 24.1 pg (27.0-33.0); MEAN CORPUSCULAR HGB CONC 30.9 g/dl (32.0-36.5); PLATELET COUNT, AUTOMATED 133 10^3/uL (150-450); RED BLOOD COUNT 2.41 10^6/uL (4.00-5.40); WHITE BLOOD COUNT 7.7 10^3/uL (4.0-10.0)
[2021-10-06 08:52] LABS: HEMATOCRIT 18.8 % (36.0-47.0)
[2021-10-06 08:53] LABS: HEMOGLOBIN 5.8 g/dl (12.0-15.5)
[2021-10-06] MEDS: IBUPROFEN 800 MG TAB PO SCH ×2 (11:10→18:32)
[2021-10-06 21:41] LABS: HEMATOCRIT 23.7 % (36.0-47.0); HEMOGLOBIN 7.3 g/dl (12.0-15.5); MEAN CORPUSCULAR HEMOGLOBIN 25.3 pg (27.0-33.0); MEAN CORPUSCULAR HGB CONC 30.8 g/dl (32.0-36.5); PLATELET COUNT, AUTOMATED 136 10^3/uL (150-450); RED BLOOD COUNT 2.89 10^6/uL (4.00-5.40); WHITE BLOOD COUNT 9.4 10^3/uL (4.0-10.0)
[2021-10-07] MEDS: PERCOCET 5MG/325MG TAB PO PRN ×2 (01:41→09:54)
[2021-10-07 02:00] VITALS: BP 118/63
[2021-10-07] MEDS: IBUPROFEN 800 MG TAB PO SCH ×2 (03:21→11:38)
[2021-10-07 06:00] VITALS: BP 129/60
[2021-10-07 08:22] LABS: HEMATOCRIT 22.9 % (36.0-47.0); HEMOGLOBIN 7.2 g/dl (12.0-15.5); MEAN CORPUSCULAR HEMOGLOBIN 25.4 pg (27.0-33.0); MEAN CORPUSCULAR HGB CONC 31.4 g/dl (32.0-36.5); MEAN CORPUSCULAR VOLUME 80.9 fl (80.0-96.0); PLATELET COUNT, AUTOMATED 133 10^3/uL (150-450); RED BLOOD COUNT 2.83 10^6/uL (4.00-5.40); WHITE BLOOD COUNT 7.9 10^3/uL (4.0-10.0)
[2021-10-07 09:49] VITALS: BP 134/65
[2021-10-07] MEDS: SIMETHICONE 80MG CHEW TAB PO PRN (09:53)
[2021-10-07] MEDS: PRENATAL VITAMINS CHEWABLE TABLET PO SCH (09:54)
[2021-10-07] MEDS ORDERED: IBUP80TA PO (10:04)
[2021-10-07] MEDS ORDERED: OXYC1TAB23 PO (10:04)
== END 2021-10-07 12:00 | disposition home or self-care (01) | DRG 540 ==
LOC: M LDI 10-05 05:23 → M OBS 10-05 11:56
PROVIDERS: ADMIT Specialist; ATTEND Specialist
PROC: 10D00Z1 Extraction of Products of Conception, Low, Open Approach (ICD-10-PCS; principal; 2021-10-05 07:30)
DX: O34.211 Maternal care for low transverse scar from previous cesarean delivery (principal); O24.425 Gestational diabetes mellitus in childbirth, controlled by oral hypoglycemic drugs; Z37.0 Single live birth; Z3A.39 39 weeks gestation of pregnancy

== ENCOUNTER → 2022-08-04 | Outpatient (CLI) | payer OTHER ==
[~2022-08-04] MED LIST changes: +IBUP80TA PO
== END ==
LOC: M LABSMTC 09:15
PROVIDERS: ATTEND Anesthesiology
DX: Z01.812 Encounter for preprocedural laboratory examination (principal); Z20.822 Contact with and (suspected) exposure to COVID-19

== ENCOUNTER 2022-08-09 06:03 | Day surgery (SDC) | payer OTHER ==
[~2022-08-09] VITALS: Ht 167.6 cm; Wt 91.2 kg
[~2022-08-09 06:03] MED LIST changes: +ceFAZolin SOD 2 GM in IV 1 EA IV ONE
[2022-08-09] MEDS ORDERED: LR 1,000 ML IV SCH ×2 (06:25→09:15)
[2022-08-09 07:08] LABS: HEMATOCRIT 36.5 % (36.0-47.0); MEAN CORPUSCULAR HGB CONC 30.1 g/dl (32.0-36.5); PLATELET COUNT, AUTOMATED 197 10^3/uL (150-450)
[2022-08-09] MEDS ORDERED: ONDANSETRON 4MG 2ML VIAL As Ordered ONE (07:12)
[2022-08-09] MEDS ORDERED: ROCURONIUM BROMIDE 50 MG/5 ML VIAL As Ordered ONE ×2 (07:12→08:07)
[2022-08-09] MEDS ORDERED: propofoL 200 MG/20 ML VIAL As Ordered ONE (07:12)
[2022-08-09] MEDS ORDERED: LIDOCAINE 2% 100MG/5ML SDV (FOR ANES.) As Ordered ONE (07:12)
[2022-08-09] MEDS ORDERED: dexameTHASONE 4 MG/ML 1ML VIAL (J1100 PER 1MG) As Ordered ONE ×2 (07:13→07:53)
[2022-08-09] MEDS ORDERED: KETOROLAC 60MG 2ML VIAL As Ordered ONE (07:13)
[2022-08-09] MEDS ORDERED: SCOPOLAMINE 1MG TRANSDERMAL PATCH TOP ONE (07:15)
[2022-08-09] MEDS ORDERED: BUPIVACAINE/EPIN 0.25% 30 ML VIAL As Ordered ONE (07:15)
[2022-08-09] MEDS ORDERED: BUPIVACAINE LIPOSOME/PF 1.3% 20ML VIAL (13.3MG/ML)(EXPAREL) As Ordered ONE (07:15)
[2022-08-09] MEDS ORDERED: fentaNYL 100 MCG/2 ML INJECTION As Ordered ONE (07:19)
[2022-08-09] MEDS ORDERED: MIDAZOLAM INJ 2MG/2ML VIAL (J2250 PER 1MG) As Ordered ONE (07:19)
[2022-08-09] MEDS ORDERED: BUPIVACAINE HCL 0.25% 10ML VIAL As Ordered ONE (07:32)
[2022-08-09] MEDS ORDERED: KETAMINE HCL 200 MG/20 ML VIAL As Ordered ONE (07:53)
[2022-08-09] MEDS ORDERED: ACETAMINOPHEN 1000MG 100ML IV BTL (OFIRMEV) (J0131 PER 10MG) As Ordered ONE (07:55)
[2022-08-09] MEDS ORDERED: SUGAMMADEX SODIUM 500 MG/5 ML VIAL (BRIDION) As Ordered ONE (08:32)
[2022-08-09] MEDS ORDERED: METOCLOPRAMIDE INJ 10MG/2ML VIAL (J2765 PER 1) As Ordered ONE (08:34)
[2022-08-09] MEDS ORDERED: ONDANSETRON 4MG 2ML VIAL IV PRN (09:15)
[2022-08-09] MEDS ORDERED: HYDROMORPHONE HCL 0.5 MG/ 0.5 ML SYRINGE (J1170 PER 1) IV PRN (09:15)
[2022-08-09] MEDS ORDERED: fentaNYL 100 MCG/2 ML INJECTION IV PRN (09:15)
[2022-08-09] MEDS ORDERED: METOCLOPRAMIDE INJ 10MG/2ML VIAL (J2765 PER 1) IV PRN (09:15)
[2022-08-09] MEDS ORDERED: oxyCODONE 5MG TAB PO PRN (09:15)
[2022-08-09] MEDS ORDERED: NS 1,000 ML IV SCH (09:30)
[2022-08-09] MEDS ORDERED: traMADol 50 MG TAB PO PRN (09:30)
[2022-08-09 11:25] VITALS: BP 117/71
== END 2022-08-09 11:25 | disposition home or self-care (01) ==
LOC: M SDC 06:03
PROVIDERS: ATTEND Surgery
DX: K43.2 Incisional hernia without obstruction or gangrene (principal)
CPT/HCPCS: 36415; 49656; 85027; 88302; C1781; C9290; J0131; J0690; J1100; J1885; J2250; J2405; J2765; J3010; S2900

== ENCOUNTER → 2022-08-24 | Outpatient (REF) | payer OTHER ==
[~2022-08-24] MED LIST changes: -ceFAZolin SOD 2 GM in IV 1 EA IV ONE
== END ==
LOC: M SFHCWAGY 13:31
PROVIDERS: ATTEND Specialist
DX: Z01.419 Encounter for gynecological examination (general) (routine) without abnormal findings (principal); Z12.4 Encounter for screening for malignant neoplasm of cervix

== ENCOUNTER → 2022-11-04 | Outpatient (CLI) | payer OTHER | LOC: M WHC 08:39 | PROVIDERS: ATTEND Specialist | DX: Z12.31 Encounter for screening mammogram for malignant neoplasm of breast (principal) ==

== ENCOUNTER → 2022-11-22 | Outpatient (CLI) | payer OTHER | LOC: M WHC 09:05 | PROVIDERS: ATTEND Specialist | DX: R92.2 Inconclusive mammogram (principal) | CPT/HCPCS: 76642; 77066; G0279 ==

== ENCOUNTER → 2022-12-14 | Outpatient (CLI) | payer OTHER ==
[~2022-12-14] MED LIST changes: +CETI10CA13 PO; +EQL50TAB2 PO
[2022-12-14 08:59] VITALS: BP 130/80
== END ==
LOC: M WHCPRO 07:50
PROVIDERS: ATTEND Surgery
DX: R92.8 Other abnormal and inconclusive findings on diagnostic imaging of breast (principal); N63.11 Unspecified lump in the right breast, upper outer quadrant

== ENCOUNTER → 2023-04-20 | Outpatient (CLI) | payer OTHER | LOC: M WHC 09:37 | PROVIDERS: ATTEND Internal Medicine | DX: N83.201 Unspecified ovarian cyst, right side (principal); N83.202 Unspecified ovarian cyst, left side ==

== ENCOUNTER → 2023-06-05 | Outpatient (CLI) | payer OTHER | LOC: M WHC 14:07 | PROVIDERS: ATTEND Surgery | DX: R92.8 Other abnormal and inconclusive findings on diagnostic imaging of breast (principal) ==

== ENCOUNTER → 2024-02-01 | Outpatient (CLI) | payer OTHER ==
[2024-02-01 13:26] LABS: HEMATOCRIT 38.4 % (36.0-47.0); HEMOGLOBIN 12.1 g/dl (12.0-15.5); MEAN CORPUSCULAR HEMOGLOBIN 26.7 pg (27.0-33.0); MEAN CORPUSCULAR HGB CONC 31.5 g/dl (32.0-36.5); MEAN CORPUSCULAR VOLUME 84.6 fl (80.0-96.0); PLATELET COUNT, AUTOMATED 196 10^3/uL (150-450); RED BLOOD COUNT 4.54 10^6/uL (4.00-5.40); WHITE BLOOD COUNT 4.9 10^3/uL (4.0-10.0)
== END ==
LOC: M PLALAB 10:12
PROVIDERS: ATTEND Specialist
DX: N92.6 Irregular menstruation, unspecified (principal)

== ENCOUNTER 2024-02-20 08:30 | Outpatient (CLI) | payer OTHER ==
[~2024-02-20] VITALS: Ht 170.2 cm; Wt 95.0 kg
[2024-02-20 08:40] VITALS: BP 135/72; O2SAT 99
[2024-02-20] MEDS: IRON SUCROSE 500 MG in NS 250 ML OVER 4 HRS IV ONE (09:23)
[2024-02-20 10:30] VITALS: BP 120/58; O2SAT 96
[2024-02-20 11:30] VITALS: BP 126/64; O2SAT 98
[2024-02-20 12:30] VITALS: BP 113/61; O2SAT 99
== END 2024-02-20 13:25 ==
LOC: M INFU 08:30
PROVIDERS: ATTEND Specialist
DX: D64.9 Anemia, unspecified (principal)
CPT/HCPCS: 96365; 96366; J1756

== ENCOUNTER → 2024-09-12 | Outpatient (CLI) | payer BC, OTHER, SELFPAY | LOC: M WHC 10:24 | PROVIDERS: ATTEND Specialist | DX: R10.2 Pelvic and perineal pain (principal) ==